=== PATIENT | female | born 1970 | race Two or more races ===

== ENCOUNTER 2019-10-29 09:31 | Day surgery (SDC) | payer BC ==
[~2019-10-29] VITALS: Ht 152.4 cm; Wt 66.1 kg
[~2019-10-29 09:31] MED LIST: FENTANYL PF 100 MCG/2ML ONE; Iron PO; NORE5TAB PO; WARF-36 PO
[2019-10-29] MEDS ORDERED: LACTATED RINGERS 1,000 ML IV SCH (09:43)
[2019-10-29 09:56] VITALS: BP 119/81
[2019-10-29] MEDS ORDERED: CHLORHEXIDINE 15 ML UDC MM ONE (10:00)
[2019-10-29 10:19] LABS: INTERNATIONAL NORMALIZED RATIO 1.87 (0.93-1.1); PROTHROMBIN TIME 19.9 Seconds (9.6-11.5)
[2019-10-29 10:44] LABS: MD YES; MEAN CORPUSCULAR HEMOGLOBIN 28.2 pg (27.0-34.8); MEAN CORPUSCULAR HGB CONC 33.6 g/dL (32.4-35.8); MEAN CORPUSCULAR VOLUME 83.8 fL (80-100); PLATELET COUNT 280 x10^3/uL (130-400); RED BLOOD COUNT 5.07 x10^6/uL (3.82-5.3); RED CELL DISTRIBUTION WIDTH 33.7 % (9.6-15.2)
[2019-10-29 10:47] LABS: BAND#(MANUAL) 0.14 x10^3/uL; BANDS%(MANUAL) 2 % (0-7); EOS#(MANUAL) 0.14 x10^3/uL (0.0-0.4); EOS% (MANUAL) 2 % (1-7); LYMPH#(MANUAL) 2.16 x10^3/uL (1-3.4); LYMPHS% (MANUAL) 30 % (22-44); MONOS#(MANUAL) 0.22 x10^3/uL (0.3-2.7); MONOS% (MANUAL) 3 % (2-9); SEG#(MANUAL) 4.54 x10^3/uL (1.8-6.8); SEGS% (MANUAL) 63 % (42-75)
[2019-10-29 10:49] LABS: ANISOCYTOSIS 2+; HYPOCHROMIA 1+
[2019-10-29 10:53] LABS: <PLATELET ESTIMATE> ADEQUATE; <PLT MORPHOLOGY> NORMAL PLT MORPH
[2019-10-29 10:56] LABS: HCG UR SG 1.022 (1.003-1.030); MICROSCOPIC NOT IND
[2019-10-29 10:59] LABS: CULTURE INDICATED? NO
[2019-10-29] MEDS ORDERED: BUPIVACAINE/PF-EPI 0.25% 1:200K ONE ×2 (11:48→11:56)
[2019-10-29] MEDS ORDERED: ONDANSETRON 2MG/ML, 2ML ONE (12:30)
[2019-10-29] MEDS ORDERED: ROCURONIUM 10MG/ML,5ML ONE (12:30)
[2019-10-29] MEDS ORDERED: PROPOFOL 10 MG/ML, 20ML ONE (12:30)
[2019-10-29] MEDS ORDERED: DEXAMETHASONE 4 MG/ML, 1ML ONE (12:30)
[2019-10-29] MEDS ORDERED: NEOSTIGMINE 1 MG/ML, 10ML ONE (12:30)
[2019-10-29] MEDS ORDERED: SUCCINYLCHOLINE 20 MG/ML, 10ML ONE (12:30)
[2019-10-29] MEDS ORDERED: GLYCOPYRROLATE 0.2MG/1ML, 5ML ONE (12:30)
[2019-10-29] MEDS ORDERED: CEFAZOLIN 1,000 MG ONE (12:30)
[2019-10-29] MEDS ORDERED: SILVER NITRATE STICK TP ONE (12:34)
[2019-10-29] MEDS ORDERED: PROMETHAZINE 25 MG/ML, 1ML IV PRN (13:00)
[2019-10-29] MEDS ORDERED: MEPERIDINE/PF 25MG/ML,1ML IVPush PRN (13:00)
[2019-10-29] MEDS ORDERED: PROMETHAZINE 25 MG SUPP PR PRN (13:00)
[2019-10-29] MEDS ORDERED: ACETAMINOPHEN 325 MG TABLET PO PRN (13:00)
[2019-10-29] MEDS ORDERED: HYDROmorphone 2 MG/ML, 1ML IVPush PRN (13:00)
[2019-10-29] MEDS ORDERED: ONDANSETRON ODT 8 MG PO PRN (13:00)
[2019-10-29] MEDS ORDERED: ONDANSETRON 2MG/ML, 2ML IV PRN (13:00)
[2019-10-29] MEDS ORDERED: FENTANYL PF 100 MCG/2ML IV PRN (13:00)
[2019-10-29] MEDS ORDERED: OXYcodone 5 MG/5 ML ORAL.SOL UDC PO PRN (13:00)
[2019-10-29] MEDS ORDERED: PROMETHAZINE 12.5 MG SUPP PR PRN (13:00)
== END 2019-10-29 15:10 | disposition home or self-care (01) ==
LOC: OR 09:31
PROVIDERS: ATTEND Obstetrics & Gynecology
DX: N92.0 Excessive and frequent menstruation with regular cycle (principal); D25.9 Leiomyoma of uterus, unspecified; D64.9 Anemia, unspecified; Z79.01 Long term (current) use of anticoagulants; Z79.899 Other long term (current) drug therapy; Z86.718 Personal history of other venous thrombosis and embolism; Z90.49 Acquired absence of other specified parts of digestive tract
CPT/HCPCS: 36415; 58558; 81003; 81025; 85025; 85610; 85730; 88305; J0330; J0690; J1100; J2405; J2704; J2710; J3010; J7120

== ENCOUNTER 2020-02-17 07:58 | Inpatient (IN) | payer BC ==
[2020-02-15 14:43] LABS: BASOPHILS # (AUTO) 0.02 x10^3/uL (0-0.1); BASOPHILS % (AUTO) 0 % (0-1); EOSINOPHILS # (AUTO) 0.18 x10^3/uL (0-0.4); EOSINOPHILS % (AUTO) 4 % (1-7); LYMPHOCYTES # (AUTO) 2.07 x10^3/uL (1-3.4); LYMPHOCYTES % (AUTO) 40 % (22-44); MD NO; MEAN CORPUSCULAR HEMOGLOBIN 28.5 pg (27.0-34.8); MEAN CORPUSCULAR HGB CONC 32.9 g/dL (32.4-35.8); MEAN CORPUSCULAR VOLUME 86.8 fL (80-100); MEAN PLATELET VOLUME 10.1 fL (7.4-10.4); MONOCYTES # (AUTO) 0.33 x10^3/uL (0.2-0.8); MONOCYTES % (AUTO) 6 % (2-9); NEUTROPHILS # (AUTO) 2.59 x10^3/uL (1.8-6.8); NEUTROPHILS % (AUTO) 50 % (42-75); PLATELET COUNT 326 x10^3/uL (130-400); RED BLOOD COUNT 3.86 x10^6/uL (3.82-5.3)
[2020-02-15 14:54] LABS: ALANINE AMINOTRANSFERASE 31 U/L (12-78); ALBUMIN 3.8 g/dL (3.4-5.0); ANION GAP 5 mmol/L (5-15); CALCIUM 8.4 mg/dL (8.5-10.1); CHLORIDE 106 mmol/L (98-107)
[2020-02-15 14:56] LABS: ALKALINE PHOSPHATASE 79 U/L (45-117); BILIRUBIN,TOTAL 0.3 mg/dL (0.2-1.0); TOTAL PROTEIN 7.5 g/dL (6.4-8.2)
[2020-02-15 15:47] LABS: INTERNATIONAL NORMALIZED RATIO 0.98 (0.93-1.1); PROTHROMBIN TIME 10.4 Seconds (9.6-11.5)
[~2020-02-17] VITALS: Ht 152.4 cm; Wt 72.0 kg
[~2020-02-17 07:58] MED LIST changes: -FENTANYL PF 100 MCG/2ML ONE
[2020-02-17] MEDS ORDERED: MIDAZOLAM 1 MG/ML, 2ML ONE (08:17)
[2020-02-17] MEDS ORDERED: FENTANYL PF 250 MCG/5ML ONE (08:17)
[2020-02-17] MEDS ORDERED: ACETAMINOPHEN 500 MG TABLET PO ONE (08:30)
[2020-02-17] MEDS ORDERED: OxyconTIN ER 10 MG TAB.ER PO ONE (08:30)
[2020-02-17] MEDS ORDERED: CHLORHEXIDINE 15 ML UDC MM STA (08:55)
[2020-02-17] MEDS ORDERED: CHLORHEXIDINE 15 ML UDC ONE (08:57)
[2020-02-17] MEDS ORDERED: LACTATED RINGERS 1,000 ML IV SCH (09:00)
[2020-02-17] MEDS ORDERED: PLEASE ENTER HEIGHT AND WEIGHT MC SCH (09:00)
[2020-02-17] MEDS ORDERED: FLUORESCEIN SODIUM 500 MG/5 ML ONE (09:28)
[2020-02-17] MEDS ORDERED: ENOXAPARIN 40 MG/0.4 ML SQ ONE (09:30)
[2020-02-17] MEDS ORDERED: DEXAMETHASONE 4 MG/ML, 1ML ONE ×2 (09:53)
[2020-02-17] MEDS ORDERED: CEFAZOLIN 1,000 MG ONE (09:55)
[2020-02-17] MEDS ORDERED: ONDANSETRON 2MG/ML, 2ML IVPush PRN (10:30)
[2020-02-17] MEDS ORDERED: hydrALAzine 20 MG/ML, 1ML IV PRN (10:30)
[2020-02-17] MEDS ORDERED: MIDAZOLAM 1 MG/ML, 2ML IV PRN (10:30)
[2020-02-17] MEDS ORDERED: PROMETHAZINE 25 MG/ML, 1ML IVPush PRN (10:30)
[2020-02-17] MEDS ORDERED: MEPERIDINE/PF 25MG/0.5ML IVPush PRN (10:30)
[2020-02-17] MEDS ORDERED: OXYcodone 5 MG/5 ML ORAL.SOL UDC PO PRN (10:30)
[2020-02-17] MEDS ORDERED: LABETALOL 5MG/ML, 20ML IV PRN (10:30)
[2020-02-17] MEDS ORDERED: PROPOFOL 10 MG/ML, 20ML ONE (10:47)
[2020-02-17] MEDS ORDERED: ROCURONIUM 10MG/ML,5ML ONE (10:47)
[2020-02-17] MEDS ORDERED: ONDANSETRON 2MG/ML, 2ML ONE (10:47)
[2020-02-17] MEDS ORDERED: FENTANYL PF 100 MCG/2ML ONE (11:49)
[2020-02-17] MEDS ORDERED: OXYcodone 5 MG/5 ML ORAL.SOL UDC ONE (11:49)
[2020-02-17] MEDS ORDERED: MEPERIDINE/PF 25MG/ML,1ML ONE (11:49)
[2020-02-17] MEDS: FENTANYL PF 100 MCG/2ML IV PRN ×2 (12:02→12:10)
[2020-02-17] MEDS ORDERED: HYDROmorphone 1 MG/ML, 1ML INJ ONE (12:35)
[2020-02-17] MEDS: HYDROmorphone 1 MG/ML, 1ML INJ IVPush PRN ×2 (12:36→12:42)
[2020-02-17] MEDS ORDERED: HYDROmorphone 2 MG/ML, 1ML IV PRN (14:00)
[2020-02-17] MEDS ORDERED: ONDANSETRON 2MG/ML, 2ML IV PRN (14:00)
[2020-02-17 14:54] VITALS: BP 124/79
[2020-02-17] MEDS: POTASSIUM CHLORIDE 20 MEQ in LACTATED RINGERS 1,000 ML IV SCH ×2 (15:05→23:16)
[2020-02-17] MEDS: OXYcodone/APAP 5/325MG TABLET PO PRN ×2 (15:50→22:07)
[2020-02-17] MEDS: IBUPROFEN 600 MG TABLET PO SCH ×2 (15:50→22:06)
[2020-02-17] MEDS: CEFAZOLIN PMX 1GM/50ML 50 ML IVPB SCH (17:32)
[2020-02-17 20:03] VITALS: BP 112/77
[2020-02-17] MEDS: DOCUSATE 100 MG CAPSULE PO SCH (22:06)
[2020-02-18 00:07] VITALS: BP 100/68
[2020-02-18] MEDS: CEFAZOLIN PMX 1GM/50ML 50 ML IVPB SCH (02:30)
[2020-02-18 04:22] VITALS: BP 98/65
[2020-02-18] MEDS: IBUPROFEN 600 MG TABLET PO SCH ×3 (05:50→16:00)
[2020-02-18] MEDS: POTASSIUM CHLORIDE 20 MEQ in LACTATED RINGERS 1,000 ML IV SCH ×2 (05:50→15:10)
[2020-02-18 08:00] VITALS: BP 93/62
[2020-02-18] MEDS ORDERED: OXYcodone/APAP 5/325MG PO (08:09)
[2020-02-18] MEDS ORDERED: ENOX40SY4 SQ (08:09)
[2020-02-18] MEDS ORDERED: ENOXAPARIN 40 MG/0.4 ML SQ SCH (09:00)
[2020-02-18] MEDS: DOCUSATE 100 MG CAPSULE PO SCH (09:34)
[2020-02-18 12:41] VITALS: BP 91/60
[2020-02-18] MEDS: OXYcodone/APAP 5/325MG TABLET PO PRN (15:07)
[2020-02-18] MEDS ORDERED: ONDANSETRON ODT 4 MG ONE (15:15)
[2020-02-18] MEDS ORDERED: ONDANSETRON ODT 4 MG PO PRN (15:30)
[2020-02-18 16:00] VITALS: BP 93/64
[2020-02-18] MEDS ORDERED: ONDANSETRON ODT 4 MG PO ONE (16:00)
== END 2020-02-18 17:00 | disposition home or self-care (01) | DRG 743 ==
LOC: ORIP 07:58 → 4NE 13:10
PROVIDERS: ADMIT Obstetrics & Gynecology; ATTEND Obstetrics & Gynecology
PROC: 0UT70ZZ Resection of Bilateral Fallopian Tubes, Open Approach (ICD-10-PCS; 2020-02-17)
PROC: 0UT20ZZ Resection of Bilateral Ovaries, Open Approach (ICD-10-PCS; 2020-02-17)
PROC: 0TJB8ZZ Inspection of Bladder, Via Natural or Artificial Opening Endoscopic (ICD-10-PCS; 2020-02-17)
PROC: 0UT90ZZ Resection of Uterus, Open Approach (ICD-10-PCS; principal; 2020-02-17 10:30)
DX: D25.9 Leiomyoma of uterus, unspecified (principal); D64.9 Anemia, unspecified; N92.0 Excessive and frequent menstruation with regular cycle; N94.6 Dysmenorrhea, unspecified; Z20.828 Contact with and (suspected) exposure to other viral communicable diseases; Z86.718 Personal history of other venous thrombosis and embolism; Z87.442 Personal history of urinary calculi; Z90.710 Acquired absence of both cervix and uterus; Z90.721 Acquired absence of ovaries, unilateral; Z90.49 Acquired absence of other specified parts of digestive tract
CPT/HCPCS: 36415; 80053; 84703; 85014; 85018; 85025; 85610; 85730; 86850; 86900; 86923; 87635; 88307; G0378; J0690; J1100; J1170; J1650; J2175; J2250; J2405; J2704; J3010; J3480; Q0162; J7120